=== PATIENT | female | born 1965 ===

== ENCOUNTER 2018-10-07 00:31 | Emergency (ER) | payer SELFPAY ==
[2018-10-07 00:42] VITALS: BP 116/87
[2018-10-07 01:07] LABS: Basophils % (Auto) 0.7 % (0.0-1.8); Eosinophils # (Auto) 0.1 K/mm3 (0.0-0.4); Eosinophils % (Auto) 0.9 % (0.0-4.3); Hematocrit 40.8 % (30.3-42.9); Hemoglobin 13.8 gm/dl (10.1-14.3); Lymphocytes # (Auto) 2.3 K/mm3 (1.2-5.4); Lymphocytes % (Auto) 35.4 % (13.4-35.0); Mean Corpuscular HGB Conc 34 % (30-34); Mean Corpuscular Volume 86 fl (79-97); Monocytes # (Auto) 0.6 K/mm3 (0.0-0.8); Platelet Count 302 K/mm3 (140-440); Red Blood Count 4.77 M/mm3 (3.65-5.03); Red Cell Distribution Width 13.7 % (13.2-15.2)
--- NOTE | 2018-10-07 01:22 | XRay Report ---
PROCEDURE: XR ELBOW 3+V LT TECHNIQUE: 3 views of the left elbow were obtained. HISTORY: Pain and burning after plasma donation COMPARISONS: None FINDINGS: There are no skeletal or soft tissue pelvis. Joint fluid is not seen. IMPRESSION: Within normal limits.. This document is electronically signed by Richard Cevallos MD., Oct 07 2018 01:20:23 AM ET
[2018-10-07 01:30] LABS: Alanine Aminotransferase 14 units/L (7-56); Albumin 3.9 g/dL (3.9-5); BUN/Creatinine Ratio 16; Blood Urea Nitrogen 11 mg/dL (7-17); Calcium 9.5 mg/dL (8.4-10.2); Hemolysis Index 3
[2018-10-07] MEDS ORDERED: DECADRON IM ONE (04:06)
[2018-10-07] MEDS ORDERED: TYLENOL PO ONE (04:06)
[2018-10-07] MEDS ORDERED: TORADOL IM ONE (04:06)
--- NOTE | 2018-10-07 05:34 | Emergency Department Report ---
ED Upper Extremity Inj HPI - General Chief Complaint: Extremity Injury, Upper Stated Complaint: L ARM BURNING Time Seen by Provider: 10/07/18 04:00 Source: patient Mode of arrival: Ambulatory Limitations: No Limitations - History of Present Illness Initial Comments: Patient is a 52-year-old -[place] female with no past medical history presents to the ED with complaint of acute onset persistent severe left forearm pain that radiates to her neck and he started to have left fingers for the last 3 days. Patient says that she vomited blood 3 days ago and thereafter developed some mild bruises on puncture site in the left ante-cubital area. Patient states that thereafter she started developing pain in the puncture site that radiates to her left shoulder and her left lateral neck. Patient states that the last 2 days the pain now radiates from the left lateral neck area distally to her left finger with a burning sensation and tingling. Patient states that she is unable to sleep because of severe burning and tingling sensation in her left arm. Patient denies fever, chills, nausea, vomiting, dizziness, headache, chest pain, shortness of breath, back pain, abdominal pain, diaphoresis or left arm weakness. MD Complaint: Injury to:: left, shoulder (left), elbow (left), forearm (left) -: Sudden, days(s) (3) Other Extremity Injury: Fingers: Left, Hand: Left, Wrist: Left, Elbow: Left, Arm: Left, Shoulder: Left, Forearm: Left Other Injuries: neck Handedness: left Place: outdoors (DURING BLOOD DONATION) Improves With: cold therapy Worsens With: movement of extremity Context: direct blow, laceration (Blood donation and phlebotomy), injury (left forearm), other (Puncture wound of right forearm during blood donation) Associated Symptoms: numbness, neck pain. denies: weakness, suspects foreign body, nausea/vomiting, heard/felt popping sensat Treatments Prior to Arrival: NSAIDS - Related Data Previous Rx's Medication Instructions Recorded Last Taken Type Gabapentin [Neurontin] 300 mg PO Q8HR PRN #30 capsule 10/07/18 Unknown Rx Naproxen 500 mg PO Q12H PRN #20 tablet 10/07/18 Unknown Rx Prednisone [predniSONE 10 mg 10 mg PO .TAPER #21 tab.ds.pk 10/07/18 Unknown Rx (6-Day Pack, 21 Tabs)] tiZANidine [Zanaflex] 4 mg PO Q8H PRN #15 tablet 10/07/18 Unknown Rx traMADol [Ultram] 50 mg PO Q6HR PRN #15 tablet 10/07/18 Unknown Rx Allergies Allergy/AdvReac Type Severity Reaction Status Date / Time No Known Allergies Allergy Verified 10/07/18 00:42 ED Review of Systems ROS: Stated complaint: L ARM BURNING Other details as noted in HPI Comment: All other systems reviewed and negative Constitutional: no symptoms reported, see HPI Eyes: as per HPI. denies: eye pain, eye discharge, vision change ENT: as per HPI. denies: ear pain, throat pain, dental pain, epistaxis Respiratory: no symptoms reported, see HPI. denies: shortness of breath, SOB with exertion, SOB at rest, stridor, wheezing Cardiovascular: as per HPI. denies: chest pain, palpitations, dyspnea on exertion, orthopnea, edema, syncope, paroxysmal nocturnal dyspnea Endocrine: no symptoms reported, see HPI. denies: excessive sweating, intolerance to heat, increased hunger, increased urine, unexplained weight gain, unexplained weight loss Gastrointestinal: as per HPI. denies: abdominal pain, nausea, vomiting, diarrhea, constipation, hematemesis, hematochezia Genitourinary: as per HPI. denies: urgency, dysuria, frequency, hematuria, discharge, abnormal menses, dyspareunia Musculoskeletal: as per HPI, arthralgia (left shoulder, forearm and neck). denies: back pain, joint swelling, myalgia Skin: as per HPI, change in color (ecchymosis of left AC area). denies: rash, lesions, change in hair/nails, pruritus Neurological: as per HPI, paresthesias (left arm). denies: headache, weakness, numbness, confusion, abnormal gait, vertigo Psychiatric: as per HPI. denies: anxiety, depression, auditory hallucinations, visual hallucinations, suicidal thoughts Hematological/Lymphatic: as per HPI ED Past Medical Hx - Past Medical History Previous Medical History?: No - Surgical History Past Surgical History?: Yes Additional Surgical History: back - Social History Smoking Status: Current Every Day Smoker Substance Use Type: Alcohol - Medications Home Medications: Home Medications Medication Instructions Recorded Confirmed Last Taken Type Gabapentin [Neurontin] 300 mg PO Q8HR PRN #30 capsule 10/07/18 Unknown Rx Naproxen 500 mg PO Q12H PRN #20 tablet 10/07/18 Unknown Rx Prednisone [predniSONE 10 mg 10 mg PO .TAPER #21 tab.ds.pk 10/07/18 Unknown Rx (6-Day Pack, 21 Tabs)] tiZANidine [Zanaflex] 4 mg PO Q8H PRN #15 tablet 10/07/18 Unknown Rx traMADol [Ultram] 50 mg PO Q6HR PRN #15 tablet 10/07/18 Unknown Rx ED Physical Exam - General Limitations: No Limitations General appearance: alert, in no apparent distress, anxious - Head Head exam: Present: atraumatic, normocephalic, normal inspection - Eye Eye exam: Present: normal appearance, PERRL, EOMI. Absent: scleral icterus, conjunctival injection Pupils: Present: normal accommodation - ENT ENT exam: Present: normal exam, normal orophraynx, mucous membranes moist, TM's normal bilaterally, normal external ear exam - Neck Neck exam: Present: normal inspection, tenderness (left lateral trapezious and Sternocleidomastoid area), full ROM. Absent: meningismus, lymphadenopathy, thyromegaly - Respiratory Respiratory exam: Present: normal lung sounds bilaterally. Absent: respiratory distress, wheezes, rales, chest wall tenderness, accessory muscle use, prolonged expiratory - Cardiovascular Cardiovascular Exam: Present: regular rate, normal rhythm, normal heart sounds - GI/Abdominal GI/Abdominal exam: Present: soft, normal bowel sounds. Absent: distended, tenderness, guarding, hyperactive bowel sounds, hypoactive bowel sounds - Rectal Rectal exam: Present: deferred - Extremities Exam Extremities exam: Present: normal inspection, tenderness (left shoulder, left forearm, left hand), normal capillary refill. Absent: full ROM (due to pain), pedal edema, joint swelling, calf tenderness - Back Exam Back exam: Present: normal inspection. Absent: full ROM, tenderness, CVA tenderness (R), CVA tenderness (L), muscle spasm, paraspinal tenderness, vertebr al tenderness - Neurological Exam Neurological exam: Present: alert, oriented X3, CN II-XII intact, normal gait, reflexes normal - Psychiatric Psychiatric exam: Present: normal affect, anxious - Skin Skin exam: Present: warm, dry, intact, normal color ED Course Vital Signs 10/07/18 00:36 Temperature 97.4 F L Pulse Rate 83 Respiratory 18 Rate Blood Pressure 116/87 O2 Sat by Pulse 100 Oximetry - Reevaluation(s) Reevaluation #1: 10/07/18 05:38 Patient is alert and oriented 3 and is not in any distress with normal vital signs, but anxious. Labs were drawn and patient treated for pain in the ED. Lab test results are unremarkable. On reevaluation, patient's pain is well controlled patient is able to perform all activities of motion with mild discomfort. 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 Patient was discharged home on pain medications and muscle relaxants and advised to follow- up with her primary care physician in 2-3 days for reevaluation. ED Medical Decision Making - Lab Data Result diagrams: 10/07/18 00:51 10/07/18 00:51 - Medical Decision Making Patient is alert and oriented 3 and is not in any distress with normal vital signs, but anxious. Labs were drawn and patient treated for pain in the ED. Lab test results are unremarkable. On reevaluation, patient's pain is well controlled patient is able to perform all activities of motion with mild discomfort. 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 Patient was discharged home on pain medications and muscle relaxants and advised to follow-up with her primary care physician in 2-3 days for reevaluation. - Differential Diagnosis cervical radiculopathy, muscle strain, thrombophlebitis Critical care attestation.: If time is entered above; I have spent that time in minutes in the direct care of this critically ill patient, excluding procedure time. ED Disposition Clinical Impression: Cervical radicular pain, Strain of muscle, fascia and tendon of triceps, left arm, initial encounter, Thrombophlebitis arm Disposition: TO HOME OR SELFCARE Is pt being admited?: No Does the pt Need Aspirin: No Condition: Stable Instructions: Superficial Thrombophlebitis (ED), Cervical Radiculopathy (ED), Muscle Strain (ED) Additional Instructions: Take medications, drink plenty of fluids and follow up with your primary care physician is advised in 5-7 days. Return to the ED immediately if symptoms get worse. Prescriptions: Naproxen 500 mg PO Q12H PRN #20 tablet PRN Reason: Pain , Severe (7-10) Gabapentin [Neurontin] 300 mg PO Q8HR PRN #30 capsule PRN Reason: Pain , Severe (7-10) Prednisone [predniSONE 10 mg (6-Day Pack, 21 Tabs)] 10 mg PO .TAPER #21 tab.ds.pk traMADol [Ultram] 50 mg PO Q6HR PRN #15 tablet PRN Reason: Pain tiZANidine [Zanaflex] 4 mg PO Q8H PRN #15 tablet PRN Reason: Spasms Referrals: BEAN WOOTENLAGUNA MD KAYLEE [Primary Care Provider] - 3-5 Days Time of Disposition: 05:48 Print Language: MOZAMBICAN
== END 2018-10-07 06:02 | disposition home or self-care (01) ==
LOC: ED 00:31
DX: S46.312A Strain of muscle, fascia and tendon of triceps, left arm, initial encounter (principal); M54.12 Radiculopathy, cervical region; I80.8 Phlebitis and thrombophlebitis of other sites; F17.200 Nicotine dependence, unspecified, uncomplicated; W22.8XXA Striking against or struck by other objects, initial encounter; Y93.89 Activity, other specified; Y92.89 Other specified places as the place of occurrence of the external cause; Y99.8 Other external cause status
CPT/HCPCS: 36415; 73080; 80053; 85025; 96372; 99284; J1100; J1885